=== PATIENT | male | born 1940 | race Caucasian/White ===

== ENCOUNTER 2019-12-01 15:52 | Inpatient (IN) | payer MEDICARE, BC ==
[~2019-12-01] VITALS: Ht 175.3 cm; Wt 84.1 kg
[~2019-12-01 15:52] MED LIST: ASPIRIN 81M81 MG/TA2 PO; BROVANA15 MCG/2 M IH; COMBIRESP IH; FLOMAX 0.40.4 MG/CAP PO; IMDUR 30MG30 MG/TAB PO; LASIX 20MG TABL20 MG PO; PLAVIX 75MG TAB75 MG PO; PRINIVIL10 MG PO; PULMICORT0.5 MG/2 M IH; THEO-24400 MG PO
[2019-12-01 16:14] LABS: BASO # 0.1 (0.0-0.2); BASO % 0.4 % (0.0-2.0); EOS # 0.1 (0.0-0.7); EOS % 1.1 % (0-4.0); GRAN # 10.5 (1.4-6.5); GRAN % 80.3 % (42.2-75.2); HEMOGLOBIN 13.9 g/dl (13.5-18.0); LYMPH # 1.3 (1.2-3.4); LYMPH % 9.5 % (20.0-51.0); MEAN CELL VOLUME 100 fl (80.0-100.0); MEAN CORPUSCULAR HEMOGLOBIN 32 pg (27.0-31.0); MEAN CORPUSCULAR HGB CONC 32 g/dl (33.0-37.0); MEAN PLATELET VOLUME 9.2 fl (7.4-10.4); MONO # 1.1 (0.1-0.6); MONO % 8.2 % (1.7-9.3); PLATELET COUNT 193 K/mm3 (130-400); REDCELL DISTRIBUTION WIDTH-CV 13.6 % (11.5-14.5)
[2019-12-01 16:19] LABS: INR 1.1 (0.8-3.0); PROTHROMBIN TIME 12.9 SECONDS (9.7-12.8)
[2019-12-01 16:31] LABS: ALBUMIN 3.8 gm/dL (3.5-5.0); BILIRUBIN,TOTAL 0.6 mg/dL (0.0-1.0); C-REACTIVE PROTEIN 1.6 mg/dL (0.0-0.9); CALCIUM 8.1 mg/dL (8.4-10.2); CREATININE, serum 1.54 (0.66-1.25); POTASSIUM 3.6 mmol/L (3.4-5.0); TOTAL PROTEIN 6.6 gm/dL (6.4-8.2)
--- NOTE | 2019-12-01 18:35 | NUR ---
PATIENT ADMITED INTO ROOM 325 FROM ER WITH RIGHT PNEUMOTHORAX. CHEST TUBE TO WATER SEAL AT LCS. PATIENT ON 4L PER OXYMASK TO KEEP SATS IN MID 90'S. PATIENT CURRENTLY DENIES SOA. LEFT AND RIGHT AC IV TO INT. NO C/O N/V. GEN DIET. RUBBERIZING MECHANIC TAKING OVER PATIENT CARE.
--- NOTE | 2019-12-01 18:35 | NUR ---
Received report from EVAN Payan. Pt was lying in bed at this time. Pt has a chest- tube due to pneumothorax. Pt has Right AC and Left AC IV placement. No fluids currently running at this time. Pt has no complaints of pain at this time. Pt is on 4 liters of oxygen at this time. Pt has no other concerns for nursing staff at this time.
[2019-12-01 19:35] VITALS: BP 153/70; PULSE 85; TEMP 97.5
--- NOTE | 2019-12-01 20:00 | NUR ---
Pt is currently lying in bed at this time. Pt stated that he was not having any pain at this time. Pt ate 100% of his dinner tray. Pt has no complaints of pain at this time. Pt does have the chest tube to the right side of his chest. Chest tube has no abnormal findings at this time still on low continuious suction. Pt vitals were within normal limits. Pt took all night medications without any problems. Pt is tolerating fluids very well at this time. Pt voided 250 of yellow, clear urine. Pt is currently lying in bed and has his call light within reach at this time.
[2019-12-02] VITALS (17 sets, daily range): BP systolic 113–152; BP diastolic 58–88; PULSE 63–92; TEMP 98–99.4
--- NOTE | 2019-12-02 02:38 | NUR ---
Pt stated that he was hurting in his shoulder pt was given Ultram 50mg at this time. Will reassess pain, pt has call light within reach and bed is in lowest position
--- NOTE | 2019-12-02 08:00 | NUR ---
PATIENT IS A&O. VSS. PATIENT ON 2L PER NC WITH SATS IN MID 90'S. NO C/O SOA OR CHEST PAIN. RIGHT PLEUROVAC CHEST TUBE WITH [place] VALVE TO WATER SEAL AT LOW CONTINUOUS SUCTION. NOTED SCANT TO SMALL AMOUNTS OF BLOOD DRAINAGE IN CHEST TUBE. RIGHT LOWER LUNG [place]O VERY DEMINISHED. LEFT LUNG FILEDS CTA. NO COUGH. PATIENT HAD A LUNG BX 11/28 AND EXPERIENCED SOA SINCE ADMISSION WHERE A PNEUMOTHORAX WAS DISCOVERED. PATIENT STABLE AND HEAD TO TOE ASSESSMENT WNL. NO C/O PAIN. AM MEDS GIVEN WITH SIPS. PATIENT ATE BREAKFAST. NO C/O N/V. LEFT AND RIGHT AC IV. VOIDING SUFFIENCENT AMOUNTS USING URINAL. PATIENT HAS HX OF COPD & IS AN EX SMOKER. PATIENT IS IN GOOD SPIRITS. NO OTHER NEEDS AT THIS TIME. CALL LIGHT IN REACH.
--- NOTE | 2019-12-02 09:22 | NUR ---
SW contacted the patient's room phone to discuss discharge plan. The patient lives alone in [place]. He reports independence with ADLs and he has a FWW and home oxygen from [employer]. The patient's PCP is Dr. Ismael Daly and he receives his medications at [facility]. He reports no difficulties obtaining his meds. The patient does not have advanced directives completed. He states that he has three children: Ronnie (ph#[phone]), Kanika, and Selena. The patient plans to stay with his son, Ronnie, in [place] upon disharge. SW contacted and updated the patient's son, Ronnie. Ronnie confirmed the above information. No additional needs at this time.
--- NOTE | 2019-12-02 12:36 | NUR ---
First visit from the drier tender naphthalene. No needs right now.
--- NOTE | 2019-12-02 13:52 | NUR ---
Patient taken by wheelchair to procedure. Chest tube water seal with patient.
--- NOTE | 2019-12-02 13:55 | NUR ---
Pt into room pt onto ct table in supine position. Monitors applied. Chest tube attached to suction. O2 continues at 3l/nc.
--- NOTE | 2019-12-02 14:05 | NUR ---
Dr Aldrichk into room and talks with pt regarding procedure.
--- NOTE | 2019-12-02 14:13 | NUR ---
Specimens obtained by Dr Arellano and placed in formalin. Specimens labeled.
--- NOTE | 2019-12-02 14:30 | NUR ---
Patient back to room 325 by cart from procedure. Patient A&O, denies pain and discomfort. Patient assisted back to bed 2xnurse. chest tube in place, water seal intact. Post op VS monitored. No further needs expressed from patient. Call light within reach
--- NOTE | 2019-12-02 17:59 | NUR ---
Patient sitting up in bed finishing dinner. Denies pain and discomfort. A&O, VSS 2L NC O2, no reported SOB. IV CDI, fluids infusing. Chest tube right upper chest to LIS, water seal intact. No further needs expressed from patient. Call light within reach
[2019-12-03 03:33] VITALS: BP 141/65; PULSE 65; TEMP 98.9
--- NOTE | 2019-12-03 05:00 | NUR ---
Rested well this shift. Denied pain/shortness of breath/nausea. Tolerating PO. Adequate output. Pneumocath to right chest-dressing CDI. VS remained stable. Scant output from chest tube. Denies needs. Call light in reach. Will monitor.
[2019-12-03 07:57] VITALS: BP 124/55; PULSE 89; TEMP 98.7
--- NOTE | 2019-12-03 08:00 | NUR ---
Patient in bed resting. Alert and oriented x 3. Assessment complete. Chest tube to suction, right upper chest, gauze is CDI. States pain to right shoulder. Denies further needs at this time.
--- NOTE | 2019-12-03 11:44 | NUR ---
Patient up to recliner for lunch. No further needs at this time.
[2019-12-03 12:24] VITALS: BP 147/54; PULSE 77; TEMP 99.1
--- NOTE | 2019-12-03 14:21 | NUR ---
Assisted patient back to bed, states pain better after medicaton administration
--- NOTE | 2019-12-03 14:49 | NUR ---
ROCHELLE met with the patient to check in before the weekend and to review discharge plan. The patient reports that his shoulder gets a little sore, but other than that he is doing well. He confirms that he plans to stay with his son, Ronnie, upon discharge. He states that Ronnie is working from home now, so Ronnie will be able to assist him, if he needs any help. He had no other questions or concerns for ROCHELLE. No additional needs at this time.
[2019-12-03 15:48] VITALS: BP 113/60; PULSE 72; TEMP 98.8
--- NOTE | 2019-12-03 18:14 | NUR ---
Patient has done well throughout the day. Minimal needs. Chest tube to water seal. Pain meds given x1 this shift due to right shoulder pain. Denies futher needs at this time. Will report off to production shift supervisor.
[2019-12-03 19:33] VITALS: BP 127/60; PULSE 81; TEMP 98.9
--- NOTE | 2019-12-03 20:35 | NUR ---
Pt. laying in bed at this time. Pt. is A&OX3, assessment complete. INT to lt. AC patent. Chest tube to rt. chest, dressing CDI. Chest tube to waterseal, no new drainage noted. Pt. denies pain or other needs, call light within reach.
[2019-12-03 23:51] VITALS: BP 138/59; PULSE 70; TEMP 99
[2019-12-04 04:21] VITALS: BP 116/57; PULSE 69; TEMP 98.2
[2019-12-04 07:40] VITALS: BP 117/68; PULSE 77; TEMP 98.2
--- NOTE | 2019-12-04 08:45 | NUR ---
Patient alert and oriented, answers questions appropriately. See assessment. Chest tube to dependent drainage in place to right chest wall, dressing CDI. Scant amount of bloody drainage noted in chest tube canister. Oxygen at 3l/nc. Lungs diminished in bases, in/expiratory wheezes noted to upper lobes, clears with cough. Moderate amount of clear thick sputum noted in emesis basin. No c/o at this time.
--- NOTE | 2019-12-04 11:00 | NUR ---
Dr Dodd here to see patient. Chest tubed dc'd per Dr Dodd.
[2019-12-04 12:37] VITALS: BP 126/67; PULSE 104; TEMP 98.4
[2019-12-04 15:54] VITALS: BP 112/48; PULSE 85; TEMP 98.3
--- NOTE | 2019-12-04 19:15 | NUR ---
Pt's son called to inform this nurse that he has arrived. Pt. given discharge instructions, and discharge paperwork. Pt. verbalizes understanding of instructions. Pt. escorted out by this nurse.
== END 2019-12-04 19:15 | disposition home or self-care (01) | DRG 200 ==
LOC: COL.ER 15:52 → SURG 17:23
PROVIDERS: Emergency Medicine; ADMIT Surgery
PROC: 0W9930Z Drainage of Right Pleural Cavity with Drainage Device, Percutaneous Approach (ICD-10-PCS; 2019-12-01)
PROC: 0BBC3ZX Excision of Right Upper Lung Lobe, Percutaneous Approach, Diagnostic (ICD-10-PCS; principal; 2019-12-04)
DX: J95.811 Postprocedural pneumothorax (principal); C34.11 Malignant neoplasm of upper lobe, right bronchus or lung; Y84.8 Other medical procedures as the cause of abnormal reaction of the patient, or of later complication, without mention of misadventure at the time of the procedure; J44.9 Chronic obstructive pulmonary disease, unspecified; I10 Essential (primary) hypertension; I25.10 Atherosclerotic heart disease of native coronary artery without angina pectoris; Z87.891 Personal history of nicotine dependence
CPT/HCPCS: OP; A7041; G0378; J7030; J7120

== ENCOUNTER 2021-02-23 09:59 | Inpatient (IN) | payer MEDICARE, BC ==
[2021-02-23] VITALS (11 sets, daily range): BP systolic 99–128; BP diastolic 48–84; PULSE 67–96; TEMP 97.6–98.7
[~2021-02-23] VITALS: Ht 175.3 cm; Wt 87.5 kg
[2021-02-23] MEDS ORDERED: UNIPHYL 400MG400 MG PO (15:26)
[2021-02-23] MEDS ORDERED: NAMENDA 10MG TA10 MG PO (15:28)
[2021-02-23] MEDS ORDERED: ARICEPT10 MG PO (15:29)
[2021-02-23] MEDS ORDERED: TYLENOL 500MG500 MG PO (15:30)
--- NOTE | 2021-02-23 20:03 | NUR ---
Patient revieved post op from Pepper. Vss on O2. Patient awake & alert. He tolerted his dinner tray, reports being hungry. Patient voided x1. Urine was bloody & jelly like in texture. He reports no difficulty. Did call and give him an update. Ivf started per orders. Bedside Report to Donavon.
--- NOTE | 2021-02-23 20:54 | NUR ---
MR. foote has been in good spirit. His urine still look like jelly.Day shift RN called the Dr and notified. IV fluid was started. will continue to monitor.
[2021-02-24 04:16] VITALS: BP 112/43; PULSE 56; TEMP 98.1
[2021-02-24 07:42] VITALS: BP 119/40; PULSE 60; TEMP 98
--- NOTE | 2021-02-24 08:30 | NUR ---
Patient in bed resting. Alert and oriented x 3. Patient very [place], hearing aids on bilaterally. Patient eating breakfast at this time. Voiding dark bloody urine. Denies further needs at this time.
[2021-02-24 11:03] VITALS: BP 136/81; PULSE 98; TEMP 98.5
--- NOTE | 2021-02-24 12:55 | NUR ---
Rn Cardiovascular offered prayer and support with patient.
--- NOTE | 2021-02-24 13:00 | NUR ---
3 way bazzi catheter placed per orders, draining dark bloody urine. CBI initiated per orders, infusing at a fast rate at this time. No clots noted. Patient tolerated procedure well. Dr. Snyder updated on patient.
--- NOTE | 2021-02-24 15:15 | NUR ---
Patient having nausea and small amounts of emisis after eating, states he feels like if he is having heart burn, notified Dr. Snyder. Tums given per orders.
[2021-02-24 15:59] VITALS: BP 152/60; PULSE 63; TEMP 98
--- NOTE | 2021-02-24 18:27 | NUR ---
Patient doing well, CBI infusing at slow rate, adjusted throughout shift. Urine yeboah red at this time. Denies further needs at this time. Zofran given per orders for continued nausea, fluids continue infusing per orders. Denies further needs at this time.
[2021-02-24 19:33] VITALS: BP 106/42; PULSE 68; TEMP 98.6
--- NOTE | 2021-02-24 20:50 | NUR ---
Pt. sitting up in bed. Pt. is A&OX3, assessment complete. IV to rt. hand patent, IV fluids infusing per orders. PT. reported pain at a 0 on pain scale. Pt. denies further needs, call light within reach.
[2021-02-24 23:48] VITALS: BP 129/46; PULSE 81; TEMP 98.3
[2021-02-25 03:40] VITALS: BP 132/47; PULSE 67; TEMP 97.3
[2021-02-25 07:21] VITALS: BP 150/59; PULSE 75; TEMP 98.3
[2021-02-25 07:51] LABS: MEAN CELL VOLUME 103 fl (80.0-100.0); MEAN CORPUSCULAR HGB CONC 33 g/dl (33.0-37.0); MEAN PLATELET VOLUME 9.5 fl (7.4-10.4); PLATELET COUNT 168 K/mm3 (130-400); RED BLOOD COUNT 2.86 M/mm3 (4.20-5.60)
--- NOTE | 2021-02-25 07:52 | NUR ---
Patient sitting at edge of bed eating breakfast. Denies pain. Denies nausea at this time time. Ivf per orders to Right hand. Butt to DD with Cbi to slow rate, output red tinged & clots noted. Patient is hard of hearing. Alert & oriented. Bed alarm on. Will monitor.
[2021-02-25 08:01] LABS: HEMATOCRIT 29.5 % (42.0-52.0); HEMOGLOBIN 9.7 g/dl (13.5-18.0); MEAN CORPUSCULAR HEMOGLOBIN 34 pg (27.0-31.0)
--- NOTE | 2021-02-25 08:33 | NUR ---
Spoke to over the phone, patient breakfast taken away & patient made npo. Plan for OR this afternoon. Patient having bladder spasms. Hand irrigated multiple clots. Patient felt better after. Resting in bed. Alarms on
[2021-02-25 11:58] VITALS: BP 113/52; PULSE 95; TEMP 98.4
--- NOTE | 2021-02-25 12:00 | NUR ---
Patient family at bedside. Plan of care reviewed. Family had spoken to via phone. Patient to Chair for lunch. Nicolás fitch.
--- NOTE | 2021-02-25 14:36 | NUR ---
Patient assisted back to bed. one assist. urine seems more red tinged. Update to be given to . Cbi remains clamped. Attempted to hand irrigated, no clots obtained.
--- NOTE | 2021-02-25 15:37 | NUR ---
Patient to be Npo at midnight. Update to patient son. Patient to stay the night & Or tmrw due to continued prostate bleeding. Cbi to slow rate
[2021-02-25 15:40] VITALS: BP 132/57; PULSE 61; TEMP 97.8
--- NOTE | 2021-02-25 15:44 | NUR ---
Sw met with the pt who stated his preference to return home possibly 02/25 or 02/26 once medically stable. The pt is independent on all ADls and uses 2L oxygen sometimes when needed. The pt next of kin is Ronnie, son (ph# [phone]). The pt PCP is Ismael Daly in [place] and gets his medication from [facility]. The pt has a catheter bag. The Sw asked the pt if he was interested in HH and he said no. He does not need help with his catheter. He has had one before in the past and does fine doing it himself. The pt informed Sw that his DPAO-HC is his son, Ronnie. Forms are not in chart. No other needs stated at this time. Sw to await further recommendations and follow up as needed. Discharge Plan: Home
--- NOTE | 2021-02-25 19:09 | NUR ---
Patient sitting up at edge of bed, working on dinner. Cbi at a slow rate. pink tinged output. Denies needs at this time. Juan to resume cares.
[2021-02-25 19:17] VITALS: BP 118/47; PULSE 77; TEMP 98.2
--- NOTE | 2021-02-25 20:30 | NUR ---
Pt. sitting up in bed at this time. Pt. is A&OX3, assessment complete. IV to rt. hand patent, IV fluids infusing per orders. Butt catheter with CBI, urine is pink at this time. Pt. denies pain or other needs, call light within reach.
[2021-02-25 23:13] VITALS: BP 113/41; PULSE 66; TEMP 97.4
[2021-02-26] VITALS (15 sets, daily range): BP systolic 102–130; BP diastolic 47–67; PULSE 66–98; TEMP 97.5–99.3
--- NOTE | 2021-02-26 09:00 | NUR ---
Patient is sitting in bed, alert and oriented x4, vital signs stable, reports some discomfort in his upper abdomen. No nausea or vomiting. Has 2 L of O2 with nassal canula. Butt in place with cloths and pink urine. Patient is schedule for revision in the afternoon. Personal hygiene and change of gown. No further needs at the moment. Call light within reach.
--- NOTE | 2021-02-26 10:37 | NUR ---
AGREE WITH JUNI ASSESSMENT. PATIENT UP TO CHAIR, REMAINS NPO FOR OR
--- NOTE | 2021-02-26 14:06 | NUR ---
Patinahidn resting in bed. Ns to gravity. Patient to Or with Boone walker. Will await his return.
--- NOTE | 2021-02-26 19:40 | NUR ---
Patient received post op. Cbi moderate to fast rate. Output bloody. [place] knot & traction to bazzi as ordered. He is working on dinner without nausea. Vss on O2. scds ble. Patietn son at bedside. Bedside report to Bernadette GORDON
--- NOTE | 2021-02-26 23:20 | NUR ---
ALERT AND OX3. EATING DINNER. DENIES PAIN OR SOA OR DIZZY, NO NAUSEA. CBI RUNNING ALMOST WIDE OPEN ATTEMPT TO TURN DOWN W CLOTS SO TURNED BACK UP. RT HAND IV FLUIDS. SCD ON . TENSION W TIGHT TRACTION TO 3WAY RAUSCH CATH. DOES HAVE A COUGH EVERY NOW AND THEN NOTED. POC DISCUSSED, NEEDS MET.
--- NOTE | 2021-02-26 23:26 | NUR ---
ALERT AND OX4. DENIES SOA, CHEST PAIN OR DIZZY. DID REPORT SOME ITCHING TO BACK AFTER MED PASS, NO RASH NOTED OR SOA. DID SAY SHES SENSITIVE TO NEW SOAPS/DETERGENT. NS GOING AT 100 TO RT UPPER PORT A CATH. WILL BE NPO AT 12 FOR SCEDULED INCISION AND DRAINAGE OF RT KNEE. PM MEDS GIVEN ALONG W PRN FOR PAIN. NEEDS MET. DOES WANT SLEEPING AIDE TONIGHT PRN AMBIEN WHICH SHE TAKES AT HOME FOR INSOMNIA. REQ IT AT MIDNIGHT.
--- NOTE | 2021-02-27 02:57 | NUR ---
IRRIGATED AND GOT OUT SEVERAL CLOTS- PT REPORTED BLADDER FEELING FULL. CATH BALLON DEFLATED AND ADVANCED, COULD FEEL A CLOT OR TUBE STUCK. URINE FLOWING WELL NOW. PT CLEANED UP AND STATES FEEL RELIEF AFTER.
[2021-02-27 04:14] VITALS: BP 128/41; PULSE 69; TEMP 98.4
--- NOTE | 2021-02-27 04:58 | NUR ---
RESTED THROUGH THE NIGHT WITHOUT INCIDENT. HAD TO KEEP CBI GOING AT ALMOST WIDE OPEN TO NOT HAVE ANY CLOTS. DENIES PAIN. NEEDS MET.
[2021-02-27 07:07] LABS: MEAN CELL VOLUME 102 fl (80.0-100.0); MEAN CORPUSCULAR HGB CONC 33 g/dl (33.0-37.0); MEAN PLATELET VOLUME 9.4 fl (7.4-10.4); PLATELET COUNT 198 K/mm3 (130-400); RED BLOOD COUNT 2.52 M/mm3 (4.20-5.60)
[2021-02-27 07:12] LABS: HEMATOCRIT 25.8 % (42.0-52.0); HEMOGLOBIN 8.4 g/dl (13.5-18.0); MEAN CORPUSCULAR HEMOGLOBIN 33 pg (27.0-31.0)
[2021-02-27 07:21] LABS: CALCIUM 7.3 mg/dL (8.4-10.2); CREATININE, serum 1.61 (0.66-1.25); POTASSIUM 4.3 mmol/L (3.4-5.0)
[2021-02-27 08:11] VITALS: BP 135/52; PULSE 73; TEMP 98.5
--- NOTE | 2021-02-27 09:00 | NUR ---
Patient alert and oriented, answers questions appropriately. See assessment. Butt catheter in place, patent, draining clear yeboah urine. CBI infusing at moderate rate. Lungs with fine crackles noted in bases, clear in upper lobes. Oxygen at 2l/nc. Patient c/o SOA at rest. Heart tones strong and even, radial pulses palpable. 1+ edema noted to BLE. No other c/o at this time.
--- NOTE | 2021-02-27 10:03 | NUR ---
Patient called staff to room for c/o increased SOA. Wheezes heard throughout all lobes, fine crackles noted in bases. Oximeter 92% on 2l/nc, increased to 3l/nc. Patient c/o SOA at rest. IV fluids put on standby at this time. Attempt x1 to notify Sendy Mijares and Claudio.
--- NOTE | 2021-02-27 10:21 | NUR ---
MITCHELL Mulligan for hospitalist notified of consult.
[2021-02-27 11:03] VITALS: BP 121/53; PULSE 85; TEMP 98.4
--- NOTE | 2021-02-27 15:50 | NUR ---
The hospitalist was consulted today, due to increased shortness of breath. ROCHELLE asked the PA for PT/OT to be ordered. ROCHELLE met with the patient to review d/c plan. The patient confirms that he lives alone in [place]. He states that he does have home oxygen from [employer]. He reports that he has three children. His son, Ronnie, lives [place] and will likely transport him home when ready to d/c. The patient plans to return home upon discharge. ROCHELLE discussed home health servies and their benefits. The patient reports that he is unsure if he would need home health or would be interested in it. He would like to think about it. ROCHELLE provided him with Medicare.gov's list of home health agencies that serve [place]. ROCHELLE to continue to follow.
[2021-02-27 16:00] VITALS: BP 120/52; PULSE 77; TEMP 98.5
--- NOTE | 2021-02-27 16:29 | NUR ---
Patient c/o mid-sternal pain radiating across left chest. MITCHELL Mulligan with Hospitalist notified. EKG ordered, RT notified of order.
[2021-02-27 19:49] VITALS: BP 107/47; PULSE 87; TEMP 98.6
[2021-02-27 23:24] VITALS: BP 101/67; PULSE 99; TEMP 97.3
--- NOTE | 2021-02-28 01:23 | NUR ---
PT LEAKING URINE AROUND CATH. NO CLOTS NOTED IN LINE, CBI CONT AT MOD RATE. IRRIAGATED TO ASSURE AND AGAIN NO CLOTS. LINENS CHANGED. MONITORING. PT DENIES PAIN OR FULL BLADDER.
[2021-02-28 03:36] VITALS: BP 125/47; PULSE 92; TEMP 98.8
--- NOTE | 2021-02-28 05:39 | NUR ---
RESTED THROUGH THE NIGHT OFF AND ON. RAUSCH CATH CONT TO HAVE TRACTION. CLEAR YELLOW URINE, NO CLOTS. URINATING AROUND CATH AT TIMES. DENIES PAIN. NEEDS MET.
[2021-02-28 06:39] LABS: BASO % 0.1 % (0.0-2.0); EOS # 0.1 (0.0-0.7); EOS % 0.4 % (0-4.0); GRAN # 11.3 (1.4-6.5); GRAN % 83.8 % (42.2-75.2); LYMPH # 0.7 (1.2-3.4); LYMPH % 5.1 % (20.0-51.0); MEAN CELL VOLUME 102 fl (80.0-100.0); MEAN CORPUSCULAR HGB CONC 33 g/dl (33.0-37.0); MEAN PLATELET VOLUME 9.2 fl (7.4-10.4); MONO # 1.3 (0.1-0.6); MONO % 9.6 % (1.7-9.3); PLATELET COUNT 213 K/mm3 (130-400); RED BLOOD COUNT 2.38 M/mm3 (4.20-5.60); REDCELL DISTRIBUTION WIDTH-CV 14.3 % (11.5-14.5)
[2021-02-28 06:42] LABS: HEMATOCRIT 24.2 % (42.0-52.0); HEMOGLOBIN 7.9 g/dl (13.5-18.0); MEAN CORPUSCULAR HEMOGLOBIN 33 pg (27.0-31.0)
[2021-02-28 06:48] LABS: CALCIUM 7.9 mg/dL (8.4-10.2); CREATININE, serum 1.7 (0.66-1.25); MAGNESIUM 1.9 mg/dL (1.6-2.3); POTASSIUM 3.8 mmol/L (3.4-5.0)
[2021-02-28 07:45] VITALS: BP 128/53; PULSE 72; TEMP 99.3
--- NOTE | 2021-02-28 10:03 | NUR ---
Patient alert and oriented, answers questions appropriately. See assessment. Lungs with scattered wheezes throughout all lobes. Oxygen at 2l/nc to maintain sats above 92%. C/o dyspnea with exertion. Butt catheter patent to traction, draining clear dark judson urine. CBI slowed to slow rate. No c/o at this time.
--- NOTE | 2021-02-28 11:56 | NUR ---
PT/OT worked with the patient. PT notified ROCHELLE that the patient would be appropriate to return home with home health. If the clinical team is looking into post-acute rehab or the patient is interested in post-acute rehab, the patient would be a good candidate for IPR. ROCHELLE met with the patient and discussed therapy's recommendation and discussed post-acute rehab. The patient reports that he can manage at home and does not want to go to post-acute rehab. He reports that he would be agreeable to home health from [facility] out of [place]. ROCHELLE contacted and faxed a referral to Pierce at [facility]. ROCHELLE attempted to contact the patient's son, Ronnie, to review the above. ROCHELLE left him a voicemail.
[2021-02-28 12:42] VITALS: BP 88/44; PULSE 106; TEMP 98.7
[2021-02-28 14:46] LABS: HEMATOCRIT 25.2 % (42.0-52.0); HEMOGLOBIN 8.2 g/dl (13.5-18.0)
--- NOTE | 2021-02-28 17:03 | NUR ---
CBI clamped, bazzi catheter taken off traction, cath secure placed. Oral intake encouraged.
[2021-02-28 17:31] VITALS: BP 115/48
--- NOTE | 2021-02-28 20:40 | NUR ---
Pt. laying in bed at this time. Pt. is a&OX3, assessment complete. INT to lt. hand patent. Butt catheter to DD, clear judson urine noted. Pt. denies pain or other needs, call light within reach.
[2021-02-28 20:47] VITALS: BP 125/50; PULSE 85; TEMP 98.9
[2021-02-28 23:55] VITALS: BP 133/53; PULSE 88; TEMP 98.4
[2021-03-01 03:34] VITALS: BP 135/56; PULSE 82; TEMP 99.4
[2021-03-01 07:08] LABS: BASO % 0.2 % (0.0-2.0); EOS # 0.1 (0.0-0.7); EOS % 0.4 % (0-4.0); GRAN # 10.7 (1.4-6.5); LYMPH # 0.8 (1.2-3.4); MEAN CELL VOLUME 104 fl (80.0-100.0); MEAN CORPUSCULAR HGB CONC 33 g/dl (33.0-37.0); MEAN PLATELET VOLUME 9.5 fl (7.4-10.4); MONO # 1.3 (0.1-0.6); MONO % 10.1 % (1.7-9.3); PLATELET COUNT 223 K/mm3 (130-400); RED BLOOD COUNT 2.28 M/mm3 (4.20-5.60); REDCELL DISTRIBUTION WIDTH-CV 14.9 % (11.5-14.5)
[2021-03-01 07:09] LABS: HEMATOCRIT 23.7 % (42.0-52.0); HEMOGLOBIN 7.7 g/dl (13.5-18.0); MEAN CORPUSCULAR HEMOGLOBIN 34 pg (27.0-31.0)
[2021-03-01 07:22] LABS: CALCIUM 7.8 mg/dL (8.4-10.2); CREATININE, serum 1.71 (0.66-1.25)
--- NOTE | 2021-03-01 07:40 | NUR ---
Patient alert and oriented, answers questions appropriately. See assessment. Lungs clear in upper lobes, scattered in/ex wheezes noted in bases. C/o SOA with exertion. O2 at 3l/nc. Butt catheter patent and draining clear judson urine. No c/o at this time.
--- NOTE | 2021-03-01 10:42 | NUR ---
Pierce, at [facility], reports that they are able to accept the patient for services. ROCHELLE contacted the patient's son, Chase, to update and review d/c plan. Chase reports that the he plans on having the patient come and stay with him in [place] for a few days upon discharge. He is in agreement to home health. [facility] does not go out to [place]. ROCHELLE informed Chase of this. Chase verbalized understanding and states that they will not need home health while the patient is with him. He states that he will notify [facility] when the patient returns home. ROCHELLE provided Chase with [facility]'s phone number. Chase reports that the patient has nocturnal oxygen at home and has an inogen. He states that they do not go through any specific DME company for the inogen or concentrator. The patient is currently on 3 liters of oxygen. ROCHELLE to continue to monitor. ROCHELLE updated Pierce at [facility] of the patient going to stay with his son for a few days. Pierce reports that they can go out to see the patient when he returns home.
--- NOTE | 2021-03-01 11:04 | NUR ---
Patient c/o nausea with emesis. States had abdominal pain at that time, has resolved since. States has not had bowel movement "in a number or days". Hospitalist making unit rounds at this time, notified.
[2021-03-01 15:45] VITALS: BP 140/46; PULSE 82; TEMP 98.2
[2021-03-01 20:28] VITALS: BP 142/66; PULSE 93; TEMP 98.9
--- NOTE | 2021-03-01 21:40 | NUR ---
Pt. laying in bed with eyes closed, respirations are equal and unlabored. Pt. arouses to touch stimuli. Pt. is A&OX3, assessment complete. INT to rt. hand started leaking when flushed, new 22 g started to rt. forearm. Pt. tolerated well. Pt. denies pain or other needs, call light within reach.
[2021-03-02] VITALS: BP 121/41; PULSE 87; TEMP 99.3
[2021-03-02 05:23] VITALS: BP 130/65; PULSE 71; TEMP 98.6
[2021-03-02 07:22] LABS: MEAN CELL VOLUME 102 fl (80.0-100.0); MEAN CORPUSCULAR HGB CONC 33 g/dl (33.0-37.0); MEAN PLATELET VOLUME 9.2 fl (7.4-10.4); PLATELET COUNT 262 K/mm3 (130-400); RED BLOOD COUNT 2.48 M/mm3 (4.20-5.60); REDCELL DISTRIBUTION WIDTH-CV 14.4 % (11.5-14.5)
[2021-03-02 07:26] LABS: HEMATOCRIT 25.3 % (42.0-52.0); HEMOGLOBIN 8.3 g/dl (13.5-18.0); MEAN CORPUSCULAR HEMOGLOBIN 33 pg (27.0-31.0)
[2021-03-02 07:28] VITALS: BP 150/49; PULSE 69; TEMP 98.7
[2021-03-02 07:31] LABS: CALCIUM 8.1 mg/dL (8.4-10.2); CREATININE, serum 1.48 (0.66-1.25); POTASSIUM 4.5 mmol/L (3.4-5.0)
[2021-03-02 08:27] LABS: BAND 2 % (0-10); LYMPHOCYTE 3 % (20.0-51.0); NEUTROPHILS 93 % (42.0-75.2)
[2021-03-02 08:29] LABS: HYPOCHROMIA 1+; PLATELET ESTIMATE NORMAL (NORMAL)
--- NOTE | 2021-03-02 08:37 | NUR ---
Patient sitting at edge of bed. Awake & alert. slowing working on breakfast. Butt to DD, light peach pink in color. Int. Denies nausea. Asked patient if he has had BM and or passing flatus patient unsure. Abdomen rounded. Will monitor.
[2021-03-02] MEDS ORDERED: IPRATROPIUM BROM3 M1 IH ×2 (09:45→14:05)
[2021-03-02] MEDS ORDERED: MEDROL 4MG DOSPA4 MG PO (10:13)
--- NOTE | 2021-03-02 10:40 | NUR ---
PT WAS FOUND ON ROOM AIR SPO2 84%, NC AROUND CHIN. REPLACED NC @ 2L, SPO2 INCREASED TO 94. PT DID NOT AMBULATE.
[2021-03-02] MEDS ORDERED: OXYGEN (11:04)
--- NOTE | 2021-03-02 11:36 | NUR ---
Kitchen Worker followed up with patient as he is ready for discharge today and will require continuous oxygen. Patient states [facility] here in [place]. Patient verbalized understanding of the recommendation for continuous oxygen, however is hopeful this will not be fpc. ROCHELLE contacted Karly at [facility] who confirmed that patient is set up with them. Karly advised patient has a home concentrator and a portable concentrator. Karly also advised that they can bring up a tank to the hospital if patient needs one. ROCHELLE faxed updated orders and clinical information to Karly. ROCHELLE then contacted patient's son, Chase who advised he will be in this afternoon to brain picker patient. Chase stated that he can bring patient's portable concentrator when he comes to pick him up. Chase confirmed again that the plan is for patient to stay with him for a week or so. ROCHELLE then contacted Pierce at [facility] and faxed discharge orders. Discharge Plan: Home with [facility] and continued oxygen from [facility]. Patient to stay with his son for a short time upon discharge.
[2021-03-02 12:33] VITALS: BP 134/52; PULSE 85; TEMP 98.4
--- NOTE | 2021-03-02 12:56 | NUR ---
Patient sitting up in chair. Refused lunch. Patient did report having a BM this am. Reviewed with him orders for miralax & fiber, he took both without problems. Plans for disicharge this afternoon, when son able to pick him up
--- NOTE | 2021-03-02 16:32 | NUR ---
Patient resting in bed. awaiting his son to take him home. Patient had an afternoon snack of ice cream & then felt nauseated after, zofran prn given with a sprite. Will monitor
[2021-03-02] MEDS ORDERED: MIRALAX PA17 GM/Dose PO (17:11)
[2021-03-02] MEDS ORDERED: ZOFRAN ODT4 MG PO (17:11)
--- NOTE | 2021-03-02 18:41 | NUR ---
Patient sitting at edge of bed. Tolerated dinner. Nausea improved, I did speak with Ese with Pa about patient nausea. SHe will fax script for zofran for patient. Will report off to nightnurse
--- NOTE | 2021-03-02 20:10 | NUR ---
PLACED CATHETER TO LEG BAG, ASSISTED PT WITH DRESSING TO GO HOME. SL DC'D, ANGIOCATH INTACT.
--- NOTE | 2021-03-02 20:20 | NUR ---
DISCHARGE INSTRUCTIONS REVIEWED WITH PT AND SON. VERBALIZED UNDERSTANDING OF FOLLOW UP APPTS. EXTRA BED BAG SENT WITH PT FOR HOME USE. DISCHARGED VIA W/C TO PRIVATE VEHICLE. PERSONAL BELONGINGS AND DISCHARGE INSTRUCTIONS SENT WITH PT.
== END 2021-03-02 20:20 | disposition home or self-care (01) | DRG 665 ==
LOC: INPTSU 12:41 → SURG 12:41 → SDCO 12:41 → INPTSU 12:42 → SURG 15:30 → EDSTATUS 15:30 → SURG 18:00 → INPTSU 18:00 → SDCO 02-25 12:42 → SURG 02-25 12:42 → SDCO 02-25 23:59 → SURG 02-25 23:59
PROVIDERS: Physician Assistant; Urology; ADMIT Urology
PROC: BT141ZZ Fluoroscopy of Kidneys, Ureters and Bladder using Low Osmolar Contrast (ICD-10-PCS; 2021-02-23)
PROC: 0VT08ZZ Resection of Prostate, Via Natural or Artificial Opening Endoscopic (ICD-10-PCS; principal; 2021-02-26 14:00)
PROC: 0TCD8ZZ Extirpation of Matter from Urethra, Via Natural or Artificial Opening Endoscopic (ICD-10-PCS; 2021-02-26 14:00)
DX: R31.0 Gross hematuria (principal); J96.01 Acute respiratory failure with hypoxia; J90 Pleural effusion, not elsewhere classified; D62 Acute posthemorrhagic anemia; F03.90 Unspecified dementia, unspecified severity, without behavioral disturbance, psychotic disturbance, mood disturbance, and anxiety; J44.9 Chronic obstructive pulmonary disease, unspecified; I25.10 Atherosclerotic heart disease of native coronary artery without angina pectoris; N40.0 Benign prostatic hyperplasia without lower urinary tract symptoms; E87.70 Fluid overload, unspecified; I12.9 Hypertensive chronic kidney disease with stage 1 through stage 4 chronic kidney disease, or unspecified chronic kidney disease; N18.9 Chronic kidney disease, unspecified; D72.829 Elevated white blood cell count, unspecified; R91.1 Solitary pulmonary nodule; Z85.118 Personal history of other malignant neoplasm of bronchus and lung; Z85.528 Personal history of other malignant neoplasm of kidney; R11.2 Nausea with vomiting, unspecified; K59.00 Constipation, unspecified
CPT/HCPCS: OP; 99223; 99233-AI; J0690; J1100; J1940; J2270; J2405; J2704; J2920; J3010; J7030; J7120; Q9967

== ENCOUNTER 2021-03-07 12:53 | Emergency (ER) | payer MEDICARE, BC ==
[~2021-03-07] VITALS: Ht 175.3 cm; Wt 81.8 kg
[2021-03-07] VITALS (8 sets, daily range): BP systolic 95–117; BP diastolic 44–65; PULSE 78–99; TEMP 98–98.6
[~2021-03-07 12:53] MED LIST changes: +ARICEPT10 MG PO; +IPRATROPIUM BROM3 M1 IH; +MEDROL 4MG DOSPA4 MG PO; +MIRALAX PA17 GM/Dose PO; +NAMENDA 10MG TA10 MG PO; +OXYGEN; +TYLENOL 500MG500 MG PO; +UNIPHYL 400MG400 MG PO; +ZOFRAN ODT4 MG PO
[2021-03-07 13:37] LABS: MEAN CELL VOLUME 102 fl (80.0-100.0); MEAN CORPUSCULAR HGB CONC 32 g/dl (33.0-37.0); PLATELET COUNT 309 K/mm3 (130-400); RED BLOOD COUNT 2.13 M/mm3 (4.20-5.60); REDCELL DISTRIBUTION WIDTH-CV 15.1 % (11.5-14.5)
[2021-03-07 13:48] LABS: HEMATOCRIT 21.7 % (42.0-52.0); HEMOGLOBIN 6.9 g/dl (13.5-18.0); MEAN CORPUSCULAR HEMOGLOBIN 32 pg (27.0-31.0)
[2021-03-07 14:13] LABS: BAND 9 % (0-10); HYPOCHROMIA 1+; LYMPHOCYTE 6 % (20.0-51.0); METAMYELOCYTE 2 % (0-0); NEUTROPHILS 81 % (42.0-75.2); NUCLEATED RED BLOOD CELL 3 (0-6); PLATELET ESTIMATE NORMAL (NORMAL)
[2021-03-07 14:26] LABS: INR 1.2 (0.8-3.0); PROTHROMBIN TIME 13.3 SECONDS (9.7-12.8)
[2021-03-07 14:29] LABS: PARTIAL THROMBOPLASTIN TIME 22.4 SECONDS (26.0-37.0)
[2021-03-07 14:32] LABS: C-REACTIVE PROTEIN 3.6 mg/dL (0.0-0.9)
[2021-03-07 14:34] LABS: COLLECTION METHOD CLEAN CATCH
[2021-03-07 14:43] LABS: MUCOUS Present /lpf; PH 5 (5-8); SQUAMOUS EPITHELIAL None Seen /hpf; URINE APPEARANCE Hazy; URINE BACTERIA Rare /hpf; URINE BILIRUBIN Negative (NEGATIVE); URINE BLOOD 3+ (NEGATIVE); URINE COLOR Yellow; URINE GLUCOSE Negative (NEGATIVE); URINE KETONE Negative (NEGATIVE); URINE LEUKOCYTE ESTERASE Trace (NEGATIVE); URINE NITRATE Negative (NEGATIVE); URINE PROTEIN(semi-quant) 1+ (NEGATIVE); URINE RBC >50 /hpf; URINE UROBILINOGEN Negative (NEGATIVE)
[2021-03-07 14:51] LABS: TROPONIN-I < 0.012 ng/mL (0.000-0.035)
[2021-03-07 18:13] LABS: ALANINE AMINOTRANSFERASE 18 U/L (4-49); ALBUMIN 2.7 gm/dL (3.5-5.0); ALKALINE PHOSPHATASE 50 U/L (50-136); ANION GAP 6 mmol/L (7-16); AST,SGOT 18 U/L (15-37); BILIRUBIN,TOTAL 0.3 mg/dL (0.0-1.0); BLOOD UREA NITROGEN 63 mg/dL (9-20); CALCIUM 8.3 mg/dL (8.4-10.2); CARBON DIOXIDE 22 mmol/L (22-30); CHLORIDE 108 mmol/L (98-107); CREATININE, serum 1.83 (0.66-1.25); GLUCOSE 196 mg/dL (74-106); POTASSIUM 4.1 mmol/L (3.4-5.0); SODIUM 136 mmol/L (137-145); TOTAL PROTEIN 5.2 gm/dL (6.4-8.2)
[2021-03-07 18:29] LABS: TROPONIN-I < 0.012 ng/mL (0.000-0.035)
[2021-03-07] MEDS ORDERED: PREDNISONE1 MG PO (19:24)
== END 2021-03-07 20:34 | disposition short-term general hospital (02) ==
LOC: COL.ER 12:53
PROVIDERS: Family Medicine
DX: D64.9 Anemia, unspecified (principal); K92.2 Gastrointestinal hemorrhage, unspecified; R31.9 Hematuria, unspecified; D72.829 Elevated white blood cell count, unspecified; J44.9 Chronic obstructive pulmonary disease, unspecified; I10 Essential (primary) hypertension; I25.10 Atherosclerotic heart disease of native coronary artery without angina pectoris; F03.90 Unspecified dementia, unspecified severity, without behavioral disturbance, psychotic disturbance, mood disturbance, and anxiety; Z20.822 Contact with and (suspected) exposure to COVID-19; Z86.73 Personal history of transient ischemic attack (TIA), and cerebral infarction without residual deficits; Z85.118 Personal history of other malignant neoplasm of bronchus and lung; Z79.51 Long term (current) use of inhaled steroids; Z79.899 Other long term (current) drug therapy; Z79.02 Long term (current) use of antithrombotics/antiplatelets; Z79.52 Long term (current) use of systemic steroids
CPT/HCPCS: C9113; J0696; J7120; P9016

== ENCOUNTER → 2023-12-23 | Outpatient (CLI) | payer MEDICARE, BC ==
[~2023-12-23] MED LIST changes: +PREDNISONE1 MG PO
== END ==
LOC: COL.RAD 15:33
DX: N28.1 Cyst of kidney, acquired (principal); Z90.5 Acquired absence of kidney

== ENCOUNTER 2024-03-14 19:41 | Inpatient (IN) | payer MEDICARE, BC ==
[~2024-03-14] VITALS: Ht 172.7 cm; Wt 66.7 kg
[2024-03-14] MEDS ORDERED: NS 1,000 ML IV ONE (21:15)
[2024-03-14 22:23] LABS: BASO # 0.1 K/mm3 (0.0-0.2); BASO % 0.3 % (0.0-2.0); GRAN # 18.3 K/mm3 (1.4-6.5); GRAN % 89.9 % (42.2-75.2); HEMOGLOBIN 11.2 g/dl (13.5-18.0); LYMPH # 0.6 K/mm3 (1.2-3.4); LYMPH % 2.9 % (20.0-51.0); MEAN CELL VOLUME 107 fl (80.0-100.0); MEAN CORPUSCULAR HEMOGLOBIN 34 pg (27-31); MEAN CORPUSCULAR HGB CONC 32 g/dl (33.0-37.0); MONO # 1.3 K/mm3 (0.1-0.6); MONO % 6.4 % (1.7-9.3); PLATELET COUNT 157 K/mm3 (130-400); REDCELL DISTRIBUTION WIDTH-CV 13.1 % (11.5-14.5)
[2024-03-14 22:29] LABS: HEMATOCRIT 35.3 % (42.0-52.0)
[2024-03-14 22:35] LABS: ALBUMIN 3.6 g/dL (3.4-4.8); BILIRUBIN,TOTAL 0.8 mg/dL (0.2-1.2); CALCIUM 8.9 mg/dL (8.4-10.2); CREATININE, serum 5.81 mg/dL (0.72-1.25); POTASSIUM 3.6 mEq/L (3.5-4.5); TOTAL PROTEIN 6.7 g/dl (6.2-8.1)
[2024-03-14] MEDS ORDERED: NS 1,000 ML IV SCH (22:45)
[2024-03-14 23:36] LABS: COLLECTION METHOD CATHETER
[2024-03-15] VITALS (8 sets, daily range): BP systolic 93–136; BP diastolic 48–60; PULSE 66–96; TEMP 98.2–98.8
[2024-03-15 00:33] LABS: URINE APPEARANCE CLOUDY (CLEAR/HAZY); URINE BLOOD NEGATIVE (NEGATIVE); URINE COLOR YELLOW (YELLOW); URINE GLUCOSE NEGATIVE (NEGATIVE); URINE KETONE NEGATIVE (NEGATIVE); URINE NITRATE NEGATIVE (NEGATIVE); URINE PROTEIN(semi-quant) 1+ (NEGATIVE); URINE UROBILINOGEN 0.2 E.U/dL (0.2-1.0)
[2024-03-15 00:44] LABS: MUCOUS PRESENT (NOT PRESENT); URINE BACTERIA RARE /hpf (NONE SEEN); URINE RBC NONE SEEN /hpf (0-2)
[2024-03-15] MEDS ORDERED: OLANZapine 5 MG Orally-Disinteg TAB PO ONE (01:30)
[2024-03-15] MEDS ORDERED: NS 1,000 ML IV SCH (02:15)
[2024-03-15] MEDS ORDERED: Ondansetron 4 MG/2 ML VIAL IV PRN (02:15)
[2024-03-15] MEDS ORDERED: Acetaminophen 325 MG TAB PO PRN (02:15)
[2024-03-15] MEDS ORDERED: Heparin 5,000 UNITS/ML 1 ML VIAL SQ SCH ×2 (02:16→06:00)
[2024-03-15] MEDS ORDERED: DOXYCYCLINE HYCLATE IV ONE ×2 (02:30→05:00)
[2024-03-15] MEDS ORDERED: SODIUM CHLORIDE IV ONE ×2 (02:30→05:00)
--- NOTE | 2024-03-15 05:45 | NUR ---
PT ARRIVED TO THE MEDICAL FLOOR AROUND 0345HRS TO ROOM 312. PT A&O X 4 WITH SOME CONFUSION TO THE DATE (BUT KNEW THE PRESIDENT) AND THE REASON WHY HE WAS ADMITTED TO THE HOSPITAL, EVEN AFTER TELLING HIM SEVERAL TIMES; VSS; O2 5L VIA NC. PT DENIED GENERAL PAIN, CHEST PAIN, PALPITATIONS, SOB, N,V,D OR DIZZINESS. ADMISSIONS ASSESSMENT COMPLETE. UNABLE TO COMPLETE MED REC DUE TO PT UNABLE TO TELL ME WHAT MEDS HE TAKES OR WHAT DOSAGES. (PT'S DAUGHTER ABLE TO TELL ER STAFF WHAT MEDS PT TAKES BUT NOT THE DOSAGE PER HOME FIRE ALARM INSTALLER). PT ORIENTED TO ROOM AND HOSPITAL POLICY, HOWEVER PT MAY NEED TEACHING RE-ENFORCED DUE TO MEMORY ISSUES AND BEING HARD OF HEARING. FALL PRECAUTIONS IN PLACE. BED ALARM ON. CALL LIGHT WITHIN REACH.
--- NOTE | 2024-03-15 06:50 | NUR ---
resting in bed, bedside shift report received from EVAN Abdul son at bedside
[2024-03-15] MEDS ORDERED: Isosorbide Mononitrate CR (24-HR) 30 MG TAB PO SCH (07:00)
[2024-03-15] MEDS ORDERED: Doxycycline Hyclate 100 MG in NS 150 ML IV SCH ×2 (07:00→20:00)
[2024-03-15] MEDS ORDERED: Albuterol/Ipratropium 3 MG-0.5 MG/3 ML Neb Soln IH SCH (08:00)
[2024-03-15] MEDS ORDERED: Clopidogrel 75 MG TAB PO SCH (09:00)
[2024-03-15] MEDS ORDERED: Donepezil 5 MG TAB PO SCH (09:00)
[2024-03-15] MEDS ORDERED: THEOPHYLLINE 200 MG PO SCH (09:00)
[2024-03-15] MEDS ORDERED: Memantine 10 MG TAB PO SCH (09:00)
--- NOTE | 2024-03-15 09:30 | NUR ---
Pt's resting in bed, daughter at bedside. Pt complains of pain r/t catheter bazzi. Per night RN, pt pulling cath bazzi at night. Statlock is not in place. Pt has some leaking urine under him. Attempted to reposition catheter. Unable to get urine output. Cath bazzi removed. Pt tried to use urinal but unable. Dr. Quiroz arriving. New cath bazzi to be placed. Pt on Telemetry, getting NS 100 mls/hr. Hygiene provided. Assessment completed. Pt able to take all pills at once. Call light within reach. Bed alarm on.
[2024-03-15] MEDS ORDERED: cefTRIAXone 1 G in Water For Injection,Sterile 10 ML IV SCH (09:45)
[2024-03-15 10:36] LABS: BASO # 0.1 K/mm3 (0.0-0.2); BASO % 0.3 % (0.0-2.0); EOS # 0.1 K/mm3 (0.0-0.7); EOS % 0.3 % (0.0-4.0); GRAN % 88.2 % (42.2-75.2); HEMOGLOBIN 10.1 g/dl (13.5-18.0); LYMPH # 0.5 K/mm3 (1.2-3.4); LYMPH % 3.6 % (20.0-51.0); MEAN CELL VOLUME 106 fl (80.0-100.0); MEAN CORPUSCULAR HEMOGLOBIN 34 pg (27-31); MEAN CORPUSCULAR HGB CONC 32 g/dl (33.0-37.0); MEAN PLATELET VOLUME 9.6 fl (7.4-10.4); MONO % 7.1 % (1.7-9.3); PLATELET COUNT 157 K/mm3 (130-400); RED BLOOD COUNT 2.99 M/mm3 (4.20-5.60); REDCELL DISTRIBUTION WIDTH-CV 13.2 % (11.5-14.5)
[2024-03-15 10:38] LABS: HEMATOCRIT 31.6 % (42.0-52.0)
[2024-03-15] MEDS ORDERED: PROTONIX 40MG T40 MG PO (10:39)
[2024-03-15 11:27] LABS: CALCIUM 8.4 mg/dL (8.4-10.2); CREATININE, serum 5.68 mg/dL (0.72-1.25); MAGNESIUM 1.6 mg/dL (1.6-2.6); PHOSPHOROUS 2.9 mg/dL (2.3-4.7); POTASSIUM 3.4 mEq/L (3.5-4.5)
--- NOTE | 2024-03-15 11:55 | NUR ---
washtub worker and Student, Lady, met with patient and his son in law, Portillo, to complete assessment. Patient lives in [place] with his son in law and daughter, Selena, P# [phone]. Portillo stated Selena was contacting patient's son and other family members to update them and will be back. Patient reports his PCP is Dr. Daly, pharmacy is [facility]. SW asked Portillo if patient's DPOA-HC is Selena, he stated he was uncertain. ROCHELLE will follow up with Selena regarding this. DME is oxygen at home and Portillo believes it is through [employer]. Portillo reports patient needs some help with socks and shoes but otherwise he is independent with ADLS. Portillo reports Selena transports patient to and from all appointments. ROCHELLE expressed she would follow along with patient's care and assist with any discharge needs. ROCHELLE provided her work number to call with any questions or concerns. Discharge plan: Home - pending therapy evaluations
--- NOTE | 2024-03-15 13:02 | NUR ---
13 F COUDE CATHETER INSERTED WITH NO RESISTANCE. YELLOW CLOUDY URINE DRAINING GRAVITY IN CATHER BAG. PATIENT TOELRATED WELL. PATIENT CALL LIGHT WITHIN REACH AND BED LOW TO GROUND.
--- NOTE | 2024-03-15 14:43 | NUR ---
SW reviewed PT and OT recommendations which are HH vs SNF. herbarium worker and SW Student, Lady, met with patient and his daughter, Selena, to confirm if patient has a DPOA-HC. Selena reports she is the primary then her brother then her sister but she does not have a copy of this with her. She reports she is looking for it because she believes she emailed it to her siblings but has been unable to find it. SW presented Medicare.gov list of options for SNF and HH. SW explained PT recommendations. Selena reports she and her brother are in agreement that he should go to a custodial; however, her sister whom is 5 years older than her is not in agreement with him going to a custodial. Selena reports he is currently living with her but she had reached out to her sister whom lives in [place] approximately 6 weeks ago for the patient to go live with her. Selena reports that she has to relocate due to her job. ROCHELLE explained we could have a family conversation with the doctor and family once they find the DPOA-HC as that will back up whom makes the final decision. Selena explained she was going to look for it and hopefully have it to the licensed clinical social worker tomorrow. Selena expressed she would appreciate a family meeting to ensure everyone understands why he would need a custodial. ROCHELLE discussed discharge plan, Selena reports she and her brother are in agreement with the custodial and would choose [facility] as he is familiar with people that live in that area. ROCHELLE contacted [facility] to determine if they have a DPOA-HC on file. ROCHELLE was notified they do not have one. Discharge plan: Pending
--- NOTE | 2024-03-15 15:28 | NUR ---
rice field worker was notified the patient's daughter, Selena, has the copy of the DP-. SW met with patient's daughter, Selena, and son, Ronnie. SW obtained the [facility]- which appoints Selena as primary then Ronnie then Kanika (daughter). SW made copy and placed in chart, provided original back to Ronnie. ROCHELLE asked Ronnie if he is in agreement with halfway placement and he stated he is in agreement. ROCHELLE discussed if patient has long term acute care registered nurse care benefits and Ronnie stated he would need to contact [facility] about this. ROCHELLE asked if patient has the funding to pay for skilled nursing care if he does not have long term acute care registered nurse care benefits. Ronnie stated he would have the funds to do so for a while. ROCHELLE notified MITCHELL Julio, of family wanting a family meeting tomorrow with Dr Alexander. Discharge plan: TBD
--- NOTE | 2024-03-15 15:50 | NUR ---
Lab results notified to Dr. Alexander. No further orders.
--- NOTE | 2024-03-15 15:52 | NUR ---
Patient states he wants to go pee. Catheter bazzi is in place. Pt assisted to restroom with walker to have BM. Pt's son is in room helping. Hygiene provided.
--- NOTE | 2024-03-15 18:50 | NUR ---
resting in bed, bedside shift report received from EVAN Abdul, son at bedside
--- NOTE | 2024-03-15 20:20 | NUR ---
in bed and appears to be dozing, awakened and full assessment completed, see interventions for further info, is alert and oriented to self and place but is also forgetful at times, has not eaten supper and when asked he stated he wasn't hungry and did not want his supper tray
--- NOTE | 2024-03-15 21:00 | NUR ---
standing up at side of bed, stating he was hungry now, given sandwich box and takes this and tolerates well
--- NOTE | 2024-03-15 23:19 | NUR ---
appears to be sleeping, in bed with eyes closed, resp quiet and easy
[2024-03-16] VITALS (11 sets, daily range): BP systolic 103–145; BP diastolic 55–75; PULSE 68–74; TEMP 98.1–100.1
--- NOTE | 2024-03-16 00:54 | NUR ---
bed alarm sounding and patient sitting on side of bed, wanting to get up to bathroom, denies need for bowel movement and reminded him he had a catheter, assisted back into bed, IV has been pulled out, attempted twice to restart without success and EVAN Hernandez notified
--- NOTE | 2024-03-16 01:56 | NUR ---
IV restarted by EVAN Ellis in right upper forearm, IV fluids restarted
[2024-03-16] MEDS ORDERED: NS 1,000 ML IV SCH (03:00)
--- NOTE | 2024-03-16 03:20 | NUR ---
standing at door [facility] for his mom, assisted back to bed, bazzi and IV intact
--- NOTE | 2024-03-16 05:16 | NUR ---
appears to be sleeping, eyes closed, resp quiet and easy
[2024-03-16 07:10] LABS: BASO % 0.4 % (0.0-2.0); EOS # 0.1 K/mm3 (0.0-0.7); EOS % 0.9 % (0.0-4.0); GRAN # 7.5 K/mm3 (1.4-6.5); GRAN % 82.6 % (42.2-75.2); LYMPH # 0.6 K/mm3 (1.2-3.4); LYMPH % 6.4 % (20.0-51.0); MEAN CELL VOLUME 104 fl (80.0-100.0); MEAN CORPUSCULAR HGB CONC 32 g/dl (33.0-37.0); MEAN PLATELET VOLUME 10.1 fl (7.4-10.4); MONO # 0.8 K/mm3 (0.1-0.6); MONO % 9.3 % (1.7-9.3); PLATELET COUNT 150 K/mm3 (130-400); RED BLOOD COUNT 2.76 M/mm3 (4.20-5.60); REDCELL DISTRIBUTION WIDTH-CV 13.4 % (11.5-14.5)
[2024-03-16 07:13] LABS: HEMATOCRIT 28.6 % (42.0-52.0); MEAN CORPUSCULAR HEMOGLOBIN 33 pg (27-31)
--- NOTE | 2024-03-16 07:15 | NUR ---
bedside shift report given to Iglesia RN and BETO Vitale
--- NOTE | 2024-03-16 07:29 | NUR ---
SPPO2 ON 3 LPM. 94%. NPC. BS COARSE CRACKLES IN BASES. JUAN DAVID WEL VIA MK TX. PATIENT SLEPT THRU TX.
[2024-03-16 08:06] LABS: ALBUMIN 2.8 g/dL (3.4-4.8); ALKALINE PHOSPHATASE 58 U/L (40-150); ANION GAP 13 mmol/L (7-16); AST,SGOT 14 U/L (5-34); BILIRUBIN,TOTAL 0.6 mg/dL (0.2-1.2); BLOOD UREA NITROGEN 48 mg/dL (8-26); CALCIUM 8.2 mg/dL (8.4-10.2); CHLORIDE 114 mEq/L (98-107); GLUCOSE 100 mg/dL (70-99); POTASSIUM 3.4 mEq/L (3.5-4.5); SODIUM 148 mEq/L (136-145); TOTAL PROTEIN 5.7 g/dl (6.2-8.1)
[2024-03-16 08:23] LABS: ALANINE AMINOTRANSFERASE < 6 U/L (0-55)
--- NOTE | 2024-03-16 08:28 | NUR ---
DAUGHTER AT BEDSIDE. PT TRANSFERRED TO CHAIR WITH 1 ASSIST. RAUSCH PATENT AND DRAINING WITHOUT ISSUES, FLUIDS RUNNING PER ORDER. HOSPITALIST AT BEDSIDE UPON THIS NURSE LEAVING. CHAIR ALARM ON, CALL LIGHT IN REACH.
[2024-03-16] MEDS ORDERED: 1/2 NS 1,000 ML IV SCH (08:30)
--- NOTE | 2024-03-16 08:30 | NUR ---
PT RESTING IN CHAIR UPON ENTERING ROOM. SCHEDULED MEDS GIVEN PER eMAR. DAUGHTER AT BEDSIDE. PT REORIENTED TO HOSPITAL ROOM. CHAIR ALARM ON AND IN LOWEST POSITION. CALL LIGHT WITHIN REACH.
--- NOTE | 2024-03-16 12:00 | NUR ---
PT RETURNED TO FLOOR AT THIS TIME FROM SWALLOW STUDY. PER JEROD FROM SPEECH THERAPY, SMALL AND SLOW SIPS ARE ENCOURAGED. NO DIET CHANGES RECOMMENDED AT THIS TIME.
--- NOTE | 2024-03-16 12:19 | NUR ---
room worker met with patient's daughter to discuss discharge plan. Selena reports she and the family have spoke and explained she would like referrals sent to [facility] and [facility]. Selena reports her sister is not fully on board yet but he needs to go to a assisted for rehab and then senior living care. ROCHELLE secure emailed referral to [facility] and [facility]. ROCHELLE attended interdisciplinary clinical rounding with Dr. Alexander. Dr. Alexander reports patient would potentially be ready for discharge on Friday and is in agreement with the need for placement. ROCHELLE was notified [facility] is unable to accept at this time. ROCHELLE was contacted by Selena whom explained the family was questioning if [facility] would be a good fit for the patient and would like a referral sent to [facility] and nursing homes in [place]. Selena reports [place] is close to [place] where the son lives. ROCHELLE secure emailed referral to Fernando at [facility]. ROCHELLE StudentLady, faxed referral to [facility]. ROCHELLE also contacted [facility] as it is near patient's son in [place]. ROCHELLE Student faxed the referral to [facility]. Discharge plan: SNF
--- NOTE | 2024-03-16 12:32 | NUR ---
PT BACK IN ROOM FROM SWALLOW STUDY. THIS NURSE CALLED LAB AND NOTIFIED THAT BLOOD CULTURES ARE STILL NEEDED
--- NOTE | 2024-03-16 15:36 | NUR ---
dry mill worker contacted [facility] regarding the referral. Fernando at [facility] expressed they wanted to see how patient does the next few days with his behaviors as it is noted he has been trying to pull out his catheter and been yelling out. Fernando stated "tenatively yes" at this time but would follow up tomorrow. Fernando reports he would not be able to accept until Friday as they would not have a bed available until then. ROCHELLE was contacted by [facility] whom reports they are a non-smoking facility and do not have a bed available in LTC. SW contacted [facility] whom reports they are reviewing and will call the director of social services back. ROCHELLE contacted [facility] whom reports they received the referral, will review and call the director of social services back. ROCHELLE contacted [facility] regarding the referral they stated they believe they have received it and will follow up with the director of social services tomorrow. ROCHELLE contacted [facility] whom expressed they believe they received it and will review and call the director of social services back. They reported they do have a bed available by Friday and the rate would be $375 per day. ROCHELLE will follow up tomorrow to determine if they are able to meet their needs. ROCHELLE contacted [facility] in [place], no answer. ROCHELLE left voicemail. ROCHELLE contacted [facility] to determine if they received the referral. Karen at [facility] stated they did not have any discharges this week but would follow up with the director of social services tomorrow to see if they had any discharges that were scheduled. ROCHELLE will follow up. ROCHELLE received a call from [facility] whom expressed they are still reviewing but wanted to know if patient has any wandering concerns. ROCHELLE will follow up with the nursing and get back with the half-way tomorrow. Zuhair Frazier expressed if they are able to accept it would be on Friday. ROCHELLE attempted to contact [facility], ROCHELLE left detailed voicemail. Discharge plan: SNF
--- NOTE | 2024-03-16 19:35 | NUR ---
THIS NURSE AGREES WITH BETO ZURITA ASSESSMENT
--- NOTE | 2024-03-16 20:27 | NUR ---
UPON ENTERING ROOM, PATIENT IS RESTING QUIETLY IN BED WITH EYES CLOSED BUT IS EASILY ROUSABLE. DENIES ANY PAIN AT THIS TIME. HE DOES HAVE A COUGH BUT IT IS UNPRODUCTIVE. CURRENTLY STABLE ON 4L O2 VIA NASAL CANNULA. HE IS ALERT AND ORIENTED X2. CALL LIGHT IS WITHIN REACH. BED IS LOCKED AND IN LOW POSITION WITH BED ALARM ON.
[2024-03-17] VITALS (13 sets, daily range): BP systolic 126–145; BP diastolic 62–71; PULSE 65–73; TEMP 97.5–98.4
[2024-03-17 06:36] LABS: BASO # 0.1 K/mm3 (0.0-0.2); BASO % 0.8 % (0.0-2.0); EOS # 0.2 K/mm3 (0.0-0.7); EOS % 3.3 % (0.0-4.0); GRAN # 4.9 K/mm3 (1.4-6.5); GRAN % 73.5 % (42.2-75.2); LYMPH # 0.8 K/mm3 (1.2-3.4); LYMPH % 11.8 % (20.0-51.0); MEAN CELL VOLUME 107 fl (80.0-100.0); MEAN CORPUSCULAR HGB CONC 31 g/dl (33.0-37.0); MONO # 0.7 K/mm3 (0.1-0.6); MONO % 10.1 % (1.7-9.3); PLATELET COUNT 152 K/mm3 (130-400); RED BLOOD COUNT 2.62 M/mm3 (4.20-5.60); REDCELL DISTRIBUTION WIDTH-CV 13.3 % (11.5-14.5)
[2024-03-17 06:44] LABS: HEMATOCRIT 27.9 % (42.0-52.0); HEMOGLOBIN 8.6 g/dl (13.5-18.0); MEAN CORPUSCULAR HEMOGLOBIN 33 pg (27-31)
[2024-03-17 06:57] LABS: ALBUMIN 2.5 g/dL (3.4-4.8); BILIRUBIN,TOTAL 0.4 mg/dL (0.2-1.2); CALCIUM 8.2 mg/dL (8.4-10.2); CREATININE, serum 2.41 mg/dL (0.72-1.25); POTASSIUM 3.5 mEq/L (3.5-4.5); TOTAL PROTEIN 5.4 g/dl (6.2-8.1)
--- NOTE | 2024-03-17 08:28 | NUR ---
Patient resting in bed, A&OX3, getting fluids and antibiotics per orders. Tele and catheter bazzi in place. He asks about his breakffast, in its way. Assessment completed, meds given. No further needs at this time. Call light within reach. Bed alerm on.
--- NOTE | 2024-03-17 16:37 | NUR ---
inventory worker attended interdisciplinary clinical rounding with Dr. Alexander. Patient may be ready for discharge tomorrow or Friday. ROCHELLE spoke with patient's son, Ronnie, whom expressed they were interested in a referral being sent to the [facility] too. ROCHELLE Student faxed the referral to [facility]. ROCHELLE was notified [place], [place] and [facility] are still reviewing. [facility] ROCHELLE resent the referral. ROCHELLE was notified [facility] could accept for SNF but would need to have a financial application completed. ROCHELLE contacted patient's daughter and obtained her email, [email or web address] ROCHELLE secure emailed the application to Selena and provided update on the residential referrals. [facility] had questions regarding patient's discharge medications. ROCHELLE will provide this update in the morning during clinical rounding. ROCHELLE left a voicemail with [facility] [place], [facility], [facility] in [place] and [facility]. Discharge plan: SNF then LTC
--- NOTE | 2024-03-17 20:30 | NUR ---
UPON SHIFT ASSESSMENT PATIENT WAS AWAKE IN BED AND AXO X2. SLIGHT MEMORY DEFICIT NOTED. 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 HE DENIES SOA AND CHEST PAIN AT THIS TIME. RAUSCH DRAINING YELLOW CLEAR URINE. RT AC IV INFILTRATED, NEW IV STARTED IN RT FA ONE ATTEMPT. RLL AUSCULATATED FINE CRACKLES ALL OTHER LOBES CLEAR. VS ARE WNL AND TELE IS NS. CALL LIGHT WITHIN REACH AND BED ALARM ON. STATES NO NEEDS AT THIS TIME, AFFECT IS NORMAL/PLEASANT.
[2024-03-18] VITALS (11 sets, daily range): BP systolic 132–166; BP diastolic 69–87; PULSE 62–73; TEMP 97.5–98.6
--- NOTE | 2024-03-18 05:15 | NUR ---
BED ALARM SOUNDED, ENTERED PATIENT ROOM. PATIENT ON TOILET WITH IV DISLODGED ON FLOOR. TRAIL OF PASTY SEMI LOOSE STOOLS NOTED FROM BED ALL THE WAY INTO BATHROOM. RAUSCH STILL INTACT. NC O2 DISLODGED AND PATIENT SOA. OXYGEN ADMINISTERED. O2 WNL. HEMATOMA FORMING WERE PREVIOUS IV WAS. PATIENT STATED, "I HAD TO GO REAL BAD." PATIENT DID NOT UTILIZE CALL LIGHT. PATIENT EDUCATION WAS PROVIDED. MUNICIPAL BOND TRADER SET NEW IV TO LT FA. PATIENT SHOWERED AND RETURNED TO BED. STATES NO NEEDS AT THIE TIME.
[2024-03-18 06:37] LABS: CALCIUM 8.6 mg/dL (8.4-10.2); CREATININE, serum 2.04 mg/dL (0.72-1.25); POTASSIUM 4.4 mEq/L (3.5-4.5)
[2024-03-18 06:45] LABS: HEMATOCRIT 31.9 % (42.0-52.0)
--- NOTE | 2024-03-18 06:45 | NUR ---
ALERTED BY TELE @ 05:15. PATIENT TACHY AND CONVERTED TO AFIB. THIS NURSE WAS UNABLE TO NOTIFY PROVIDER. INFORMED DAYSHIFT RNCLINT DURING BEDSIDE REPORT. WAS ASSURED SHE WILL PASS TO ROUNDING HOSPITALIST. PATIENT NO LONGER TACHY-CURRENTLY 88 BPM.
[2024-03-18 06:51] LABS: MAGNESIUM 1.3 mg/dL (1.6-2.6)
[2024-03-18] MEDS ORDERED: Magnesium Sulfate 4 GM/50 ML IV SOLN IV SCH (09:30)
[2024-03-18] MEDS ORDERED: Lisinopril 10 MG TAB PO SCH (11:35)
--- NOTE | 2024-03-18 11:55 | NUR ---
Dr. Alexander made aware of blood pressures trending up- order rec'd to restart Lisinopril.
--- NOTE | 2024-03-18 14:03 | NUR ---
dope worker attended interdisciplinary clinical rounding with Dr. Alexander. ROCHELLE was notified patient would be medically ready for discharge today or tomorrow pending placement. ROCHELLE contacted [facility] whom expressed they do not have a bed available until Friday or Friday depending on a discharge. ROCHELLE was notified by [facility] in [place] that they could accept for SNF but they would need a financial application for LTC. ROCHELLE contacted [facility] whom expressed they would review this information with the DON and get back to the vp digital marketing social media and crm. ROCHELLE was notified [facility] could accept for SNF but would need a financial application. ROCHELLE met with patient's daughter/DPOA-HC, Selena, whom expressed the family was still considering the patient to return home with them after rehab so they were wanting to secure rehab then plan afterwards whether that would be home with family or LTC in another facility. Selena reviewed the Medicare.gov ratings and decided against [facility] in [place] and wanted him to go to [facility]. ROCHELLE left a voicemail with [facility] regarding rehab for this patient. ROCHELLE was notified [facility] is able to accept patient for LTC and rehab. ROCHELLE contacted [facility] and they are able to accept patient tomorrow for rehab. They are working on transportation and will contact the vp digital marketing social media and crm once finalized. ROCHELLE explained patient will need oxygen and wheelchair for transportation. [facility] uses [facility] in [place] P# [phone]. ROCHELLE received a call back from [facility] whom is able to accept patient tomorrow and will transport him at 2:30 pm with the oxygen and wheelchair. ROCHELLE contacted [facility] and notified them that the patient is going to a facility closer to his family but they may be interested in LTC after rehab depending on what the family decides if that is for him to live with the daughter in [place] or LTC. Zuhair Frazier understood and expressed she would reach out to family and ensure they know they were there if they needed anything. ROCHELLE contacted patient's daughter, Selena, and notified her of the discharge date and time. Selena understood. ROCHELLE asked for the Medicare card as [facility] requested it. Selena secure emailed the card to the vp digital marketing social media and crm. ROCHELLE faxed BCBS and Medicare card to [facility]. ROCHELLE updated patient's nurse that he would discharge tomorrow at 2:30 pm to [facility] in [place]. Discharge plan: [facility]
--- NOTE | 2024-03-18 15:19 | NUR ---
Patient resting in bed at this time. Drowsy today but easily arousable. Pleasant. A/O x3. Oriented to self, , place but not to month/year. Very [place] but declines offer for his hearing aides. Oxygen increased from 4L/NC to 5L/NC after physical therapy this am. Patient's SpO2 dropped <80%. Baseline is 4-5L/NC and daughter reports that she has to keep him mostly at 5L/NC at home. Pt sat up in chair this morning after therapy but requested to get back to bed a short time later. Declined offer to assist to chair for lunch. Pt agreeable to sit in chair for supper. IVF d/c'd per MD order. Denies pain or needs. Fall precautions in place.
--- NOTE | 2024-03-18 23:03 | NUR ---
Pt is alert x2, had trouble remembering the date today.At the start of the shift pt was sitting up in recliner chair in room. Later was assited to bed with fww, can be forgetful, he forgot he has a bazzi in place. Educated and reminded that he will have it in palce for a bit, then he rembered, very pleasant. Shift assessment complete and hs meds administered. IV to LAC patent. Fall precautions in place, call light within reach.
[2024-03-19] VITALS (8 sets, daily range): BP systolic 122–161; BP diastolic 72–76; PULSE 62–67; TEMP 97.8–98.4
[2024-03-19 06:32] LABS: CALCIUM 8.6 mg/dL (8.4-10.2); CREATININE, serum 1.66 mg/dL (0.72-1.25); POTASSIUM 4.2 mEq/L (3.5-4.5)
--- NOTE | 2024-03-19 07:56 | NUR ---
veterinary surgery technician called to notify pt. was off telemetry. Checked pt. and telemetry leads. Pt. is stable, leads in place, and showing on telemtry monitor at nurse's station.
[2024-03-19] MEDS ORDERED: IPRATROPIUM BROM3 M1 IH ×2 (08:40→09:25)
[2024-03-19] MEDS ORDERED: TOPROL XL 25MG25 MG PO (08:40)
[2024-03-19] MEDS ORDERED: OXYGEN (08:41)
[2024-03-19] MEDS ORDERED: OMNICEF 300MG300 MG PO (08:42)
[2024-03-19] MEDS ORDERED: Magnesium Oxide 400 MG TAB PO SCH (09:00)
[2024-03-19] MEDS ORDERED: Doxycycline Monohydrate 100 MG CAP PO SCH (11:00)
--- NOTE | 2024-03-19 11:30 | NUR ---
Assisted pt. to restroom and return to bed. Administered scheduled meds per OCT. While flushing INT, pt. c/o discomfort. Held IV abx. Notified hospitalist and pharmicist about IV and clarification if pt. will d/c w/ bazzi in place. New orders received. INT discontinued with catheter tip intact. PO abx administered per OCT. Shift assessment complete. Pt. is blowing nose frequently throughout assessment. Pt. has wet sounding cough that he states is not productive. Noted fine crackles at SIVA bases upon ausciltation of lungs. Lung sounds are diminished across all lobes. BLE and feet are edemetous. No other outstanding findings. Pt's daughter is at bedside this morning.
--- NOTE | 2024-03-19 13:10 | NUR ---
Planned discharge this afternoon at 1430. Changed Butt bag to leg bag. Bathing and oral cares provided. Assisted patient in dressing. Daughter at bedside. Daughter placed patient's cell phone in patient belonging bag to go with him to [facility].
--- NOTE | 2024-03-19 13:31 | NUR ---
aids social worker attended interdisciplinary clinical rounding with Dr. Alexander. Patient is medically ready for discharge today. Patient will go to [facility] for rehab at 2:30 pm. ROCHELLE faxed discharge orders and updates to [facility]. ROCHELLE met with patient and his daughter, Selena, and reviewed the important message from Medicare. Patient and daughter understood. Patient signed form, SW made copy, placed original in chart and provided copy to patient's daughter. Patient understands he will be going to [place] for rehab before returning to a family home. ROCHELLE contacted Sam at [facility] and confirmed they received orders and updates and they were still on for transport at 2:30 pm. ROCHELLE notified patient's nurse and community center worker of transportation time. Discharge plan: [facility]
--- NOTE | 2024-03-19 15:08 | NUR ---
Pt. discharged on 4L O2. Indwelling catheter still in place w/ leg bag. INT discontinued w/ catheter tip intact. Pt. accompanied by GURPREET Lockhart, and [facility] staff, to transport vehicle via w/c. Attempted to call [facility] w/ nurse to nurse report, but facility did not answer. Voice message w/ this nurse's call back number was left.
--- NOTE | 2024-03-19 16:06 | NUR ---
Gave report to EVAN Wright, at [facility].
== END 2024-03-19 14:59 | DRG 871 ==
LOC: COL.ER 19:41 → MEDICAL 03-15 02:28
PROVIDERS: Internal Medicine; Physician Assistant; ADMIT Internal Medicine
DX: A41.9 Sepsis, unspecified organism (principal); I21.4 Non-ST elevation (NSTEMI) myocardial infarction; J18.9 Pneumonia, unspecified organism; Q60.0 Renal agenesis, unilateral; N17.9 Acute kidney failure, unspecified; J44.0 Chronic obstructive pulmonary disease with (acute) lower respiratory infection; J44.1 Chronic obstructive pulmonary disease with (acute) exacerbation; J96.10 Chronic respiratory failure, unspecified whether with hypoxia or hypercapnia; E87.0 Hyperosmolality and hypernatremia; Z66 Do not resuscitate; I25.10 Atherosclerotic heart disease of native coronary artery without angina pectoris; N28.1 Cyst of kidney, acquired; I12.9 Hypertensive chronic kidney disease with stage 1 through stage 4 chronic kidney disease, or unspecified chronic kidney disease; N40.1 Benign prostatic hyperplasia with lower urinary tract symptoms; R33.8 Other retention of urine; N18.30 Chronic kidney disease, stage 3 unspecified; F03.90 Unspecified dementia, unspecified severity, without behavioral disturbance, psychotic disturbance, mood disturbance, and anxiety; Z99.81 Dependence on supplemental oxygen; Z95.0 Presence of cardiac pacemaker; Z79.02 Long term (current) use of antithrombotics/antiplatelets; Z95.5 Presence of coronary angioplasty implant and graft; Z90.5 Acquired absence of kidney; Z85.118 Personal history of other malignant neoplasm of bronchus and lung; Z79.899 Other long term (current) drug therapy; Z88.8 Allergy status to other drugs, medicaments and biological substances; Z87.891 Personal history of nicotine dependence; Z85.528 Personal history of other malignant neoplasm of kidney; Z23 Encounter for immunization
CPT/HCPCS: J0696; J1644; J2543; J3370; J3475; J7030; J7050; Q3014